=== PATIENT | female | born 1980 | race Caucasian/White ===

== ENCOUNTER 2017-04-11 20:33 | Emergency (ER) | payer MEDICAID ==
[2017-04-11 20:59] VITALS: BP 116/72; PULSE 124; RESP 18; O2SAT 98
--- NOTE | 2017-04-11 21:05 | C.PDOC ---
History Of Present Illness 37 yo female w/o significant PMhx present to ED for evaluation of fever, bodyaches, mild headache gradually developed since today AM. Otherwise, denies lethargy, drooling, dysphagia, dyspnea, SOB, wheezing, abd. pain, V/D, rash. At the time of evaluation, pt is awake, comfortable, not in any apparent distress. Time Seen by Provider: 04/11/17 21:02 Chief Complaint (Nursing): Flu-like Symptoms History Per: Patient Onset/Duration Of Symptoms: Gradual Past Medical History Reviewed: Historical Data, Nursing Documentation, Vital Signs Vital Signs: Last Vital Signs Temp 100.1 F H 04/11/17 21:37 Pulse 124 H 04/11/17 20:56 Resp 18 04/11/17 20:56 BP 116/72 04/11/17 20:56 Pulse Ox 98 04/11/17 21:05 - Medical History PMH: No Chronic Diseases Family History: States: No Known Family Hx - Social History Hx Alcohol Use: Yes Hx Substance Use: No - Immunization History Hx Tetanus Toxoid Vaccination: No Hx Influenza Vaccination: No Hx Pneumococcal Vaccination: No Review Of Systems Except As Marked, All Systems Reviewed And Found Negative. Constitutional: Positive for: Fever, Malaise ENT: Positive for: Nose Congestion, Throat Pain. Negative for: Ear Discharge, Nose Discharge, Throat Swelling Cardiovascular: Negative for: Chest Pain, Palpitations, Orthopnea Respiratory: Negative for: Cough, Shortness of Breath, Wheezing Gastrointestinal: Negative for: Nausea, Vomiting, Abdominal Pain Genitourinary: Negative for: Dysuria, Incontinence Musculoskeletal: Negative for: Neck Pain, Back Pain Skin: Negative for: Rash Neurological: Positive for: Headache. Negative for: Weakness, Numbness, Altered Mental Status, Dizziness Physical Exam - Physical Exam Appears: Well, Non-toxic, No Acute Distress Skin: Normal Color, Warm, Dry, No Rash Head: Normacephalic Eye(s): bilateral: PERRL Ear(s): Bilateral: Normal Nose: No Flaring, Discharge (scant clear rhinorrhea B/L) Oral Mucosa: Moist, No Drooling Tongue: Normal Appearing Lips: Normal Appearing Throat: No Erythema, No Drooling Neck: Trachea Midline, Supple, Other ((-) meningeal sign) Cardiovascular: Rhythm Regular, No Murmur, No JVD Respiratory: No Decreased Breath Sounds, No Accessory Muscle Use, No Stridor, No Wheezing Gastrointestinal/Abdominal: Soft, No Tenderness, No Distention, No Guarding, No Rebound Back: No CVA Tenderness Extremity: Normal ROM, No Deformity, No Swelling Neurological/Psych: Oriented x3, Normal Speech ED Course And Treatment O2 Sat by Pulse Oximetry: 98 Pulse Ox Interpretation: Normal Progress Note: On re-evaluation, pt is awake, not in any apparent distress. fever improved, hemodynamicaly stable. Nn-toxic, tolerate PO well in ED. PulsEOx 98% RA. ENT: no acute findings. Neck: SUpple, (-) meningeal sign. Lungs: CTA B/L, BS equal B/L. Abd: benign, (-) guaridng, (-) rebound. Neurologicaly intact Pt has clinical findings c/w Influenza-like illness. Pt advised. ref. to f/u with PMD in 2-3 days for re-eval. return to ED if any worsening or new changes. Disposition Counseled Patient/Family Regarding: Diagnosis, Need For Followup, Rx Given - Disposition Referrals: Juan Luis Be MD [Primary Care Provider] - Disposition: HOME/ ROUTINE Disposition Time: 21:38 Condition: STABLE Additional Instructions: BEDREST FOR 2-3 DAYS TAKE MEDICATION PRESCRIBED FOLLOW UP WITH PMD IN 2-3 DAYS FOR RE-EVALUATION. RETURN TO ED IF ANY WORSENING OR NEW CHANGES. Prescriptions: Ibuprofen [Motrin Tab] 600 mg PO Q6 #20 tab Oseltamivir Phosphate [Tamiflu] 75 mg PO BID #10 capsule Instructions: Influenza (ED) Forms: [facility] (Pashto), Work Excuse - Clinical Impression Clinical Impression: Influenza-like illness
[2017-04-11 21:38] VITALS: TEMP 100.1
== END 2017-04-11 21:58 | disposition home or self-care (01) ==
LOC: C.ER 20:33 → SUPCPDRO 20:33 → C.ER 21:58
DX: J11.1 Influenza due to unidentified influenza virus with other respiratory manifestations (principal)

== ENCOUNTER 2017-12-01 21:05 | Emergency (ER) | payer MEDICAID ==
[2017-12-01 21:14] VITALS: TEMP 98.2
--- NOTE | 2017-12-01 21:30 | C.PDOC ---
History Of Present Illness 37 year old female with no prior medical history presents to the ED complaining of chest pain and shortness of breath that began for 2 days worsening tonight. She reports nausea but denies fever, vomiting, cough or any other complaints. also reports minor suprapublic pain. Time Seen by Provider: 12/01/17 21:07 Chief Complaint (Nursing): Chest Pain History Per: Patient History/Exam Limitations: no limitations Onset/Duration Of Symptoms: Hrs Current Symptoms Are (Timing): Still Present Associated Symptoms: Dyspnea Exacerbating Factors: None Past Medical History Reviewed: Historical Data, Nursing Documentation, Vital Signs Vital Signs: Last Vital Signs Temp 98.2 F 12/01/17 21:11 Pulse 85 12/01/17 21:11 Resp 20 12/01/17 21:11 BP 122/76 12/01/17 21:11 Pulse Ox 100 12/01/17 21:11 - Medical History PMH: No Chronic Diseases Other Surgeries: Hx of surgeries Family History: States: No Known Family Hx - Social History Hx Alcohol Use: Yes Hx Substance Use: No - Immunization History Hx Tetanus Toxoid Vaccination: No Hx Influenza Vaccination: No Hx Pneumococcal Vaccination: No Review Of Systems Except As Marked, All Systems Reviewed And Found Negative. Constitutional: Negative for: Fever, Chills Cardiovascular: Positive for: Chest Pain Respiratory: Positive for: Shortness of Breath Gastrointestinal: Positive for: Nausea. Negative for: Vomiting Physical Exam - Physical Exam Appears: Non-toxic, Other (anxious appearing) Skin: Warm, Dry Head: Normacephalic Eye(s): bilateral: Normal Inspection Nose: Normal Oral Mucosa: Moist Neck: Normal ROM Cardiovascular: Rhythm Regular Respiratory: Normal Breath Sounds, No Rales, No Rhonchi, No Wheezing Gastrointestinal/Abdominal: Soft, No Tenderness Extremity: Normal ROM Extremity: Bilateral: Atraumatic Neurological/Psych: Oriented x3, Normal Speech Gait: Steady ED Course And Treatment - Laboratory Results Result Diagrams: 12/01/17 21:27 12/01/17 21:27 ECG: Interpreted By Me, Viewed By Me Interpretation Of ECG: Poor tracing secondary to artifact Rate From EC O2 Sat by Pulse Oximetry: 100 - Radiology CXR: Viewed By Me, Read By Radiologist CXR Interpretation: Yes: No Acute Disease Medical Decision Making Medical Decision Making: cp r/o acs Orders: - EKG - Labwork - Bloodwork - CXR - Ativan 0.5 mg IVP - UA 2130 PERC is negative. non specific leukocysotis. ua neg. all symptosm resolve.d minimal suprapubic tnederness. offered ct imaging as ua neg. she declines also declines 2nd sent trop. states will return with worsening. notified of leukoctyosis and abnormal lfts advise outpt fu. Disposition - Disposition Referrals: [facility] [Outside] [facility] [Outside] [facility] [Outside] Cornell Butler MD [Staff Provider] - Disposition: HOME/ ROUTINE Disposition Time: 22:00 Condition: STABLE Additional Instructions: you are declining further observation and imaging in the hospital. please discu ss all results with your doctor. return toe r with worsening symptoms or concerns. Instructions: Chest Pain, Acute Abdomen (Belly Pain), White Blood Cell Count Differential Test Forms: [employer] (Mongolian) - Clinical Impression Clinical Impression: Chest pain - Scribe Statement The provider has reviewed the documentation as recorded by the Scribsavannah Salter All medical record entries made by the Scribe were at my direction and personally dictated by me. I have reviewed the chart and agree that the record accurately reflects my personal performance of the history, physical exam, medical decision making, and the department course for this patient. I have also personally directed, reviewed, and agree with the discharge instructions and disposition.
[2017-12-01 21:35] LABS: BASO # 0.1 K/uL (0.0-0.2); BASO % 0.5 % (0.0-2.0); EOS # 0.1 K/uL (0.0-0.7); HEMOGLOBIN 12.5 g/dL (11.0-16.0); LYMPH # 1.7 K/uL (1.0-4.3); LYMPH % 13.1 % (20.0-40.0); MEAN CELL VOLUME 75.3 fL (81.0-99.0); MEAN CORPUSCULAR HEMOGLOBIN 25.2 pg (27.0-31.0); MEAN CORPUSCULAR HGB CONC 33.5 g/dL (33.0-37.0); MEAN PLATELET VOLUME 8.7 fL (7.2-11.7); NEUT # 9.9 K/uL (1.8-7.0); NEUT % 77.4 % (50.0-75.0); NRBC % 0.1 % (0.0-2.0); RBC 4.93 Mil/uL (3.80-5.20); RED CELL DISTRIBUTION WIDTH 16.4 % (11.5-14.5); WHITE BLOOD COUNT 12.8 K/uL (4.8-10.8)
[2017-12-01 21:44] LABS: PROTHROMBIN TIME 11.3 SECONDS (9.7-12.2)
[2017-12-01 21:50] LABS: ALB/GLOB RATIO 1.2 (1.0-2.1); ALBUMIN 4.2 g/dL (3.5-5.0); ALT/SGPT 63 U/L (9-52); AST/SGOT 111 U/L (14-36); BLOOD UREA NITROGEN 13 mg/dL (7-17); CALCIUM 9.4 mg/dl (8.6-10.4); GFR NON-AFRICAN AMERICAN > 60; LIPASE 109 U/L (23-300)
[2017-12-01 22:43] LABS: SQUAMOUS EPITHIAL 3 /hpf (0-5); URINE BACTERIA RARE (<OCC); URINE BILIRUBIN NEGATIVE (NEGATIVE); URINE BLOOD NEGATIVE (NEGATIVE); URINE CLARITY Clear (Clear); URINE COLOR Yellow (YELLOW); URINE GLUCOSE (UA) NORMAL (Normal); URINE LEUKOCYTE ESTERASE NEG Leu/uL (Negative); URINE PROTEIN NEGATIVE (NEGATIVE)
[2017-12-01 23:06] VITALS: BP 103/65; PULSE 88; RESP 14; O2SAT 99
--- NOTE | 2017-12-02 08:23 | RAD ---
Date of service: 12/01/2017 PROCEDURE: CHEST RADIOGRAPH, 1 VIEW HISTORY: chest pain COMPARISON: None available. FINDINGS: LUNGS: Clear. PLEURA: No pneumothorax or pleural fluid seen. CARDIOVASCULAR: Normal. OSSEOUS STRUCTURES: No significant abnormalities. VISUALIZED UPPER ABDOMEN: Normal. OTHER FINDINGS: None. IMPRESSION: No active disease.
--- NOTE | 2017-12-03 11:34 | CARD ---
APPROVED REPORT Date of service: 12/01/2017 EKG Measurement Heart [id number] <Conclusion> Normal sinus rhythm Junctional ST depression, probably normal Borderline ECG
== END 2017-12-01 23:05 | disposition home or self-care (01) ==
LOC: C.ER 21:05
DX: R07.9 Chest pain, unspecified (principal)
CPT/HCPCS: 71045; 80053; 81001; 83690; 83880; 84484; 84703; 85025; 85610; 85730; 93005; 96374; 96375; 99285; J2060; J2405